=== PATIENT | female | born 1960 ===

== ENCOUNTER → 2016-08-25 | Day surgery (SDC) | payer BC ==
[~2016-08-25] MED LIST: ISOSULFAN BLUE 50 MG/5 ML VIAL SQ ONE; KETOROLAC TROMETHAMINE 30 MG/ML (IVP) VIAL IV PUSH ONE; LACTATED RINGER'S 1000 ML INJ 1,000 ML ONE; LIDOCAINE 1%/EPINEPHrine 1:100,000 SOLN 20 ML VIAL ONE; MIDAZOLAM HCL 2 MG/2 ML VIAL ONE; ONDANSETRON HCL 4 MG/2 ML VIAL IV PUSH ONE; PROPOFOL 200 MG/20 ML AMP IV ONE; ceFAZolin 2 GM PREMIX 50 ML ONE
--- NOTE | 2016-08-25 13:28 | TN ---
cc: LITO COREAS M.D. DATE OF SURGERY: 08/26/2016. 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 POSTOPERATIVE DIAGNOSIS: History of poorly differentiated infiltrating ductal carcinoma right breast. OPERATIVE PROCEDURE PERFORMED: 1. Injection of blue dye right breast. 2. Right axillary sentinel lymph node biopsy. 3. Right breast needle-localized lumpectomy. SURGEON: Lito Coreas M.D. NIGHT BAKER: LETICIA Gillis. ANESTHESIA: General. INDICATIONS FOR THE PROCEDURE: This is a pleasant 56-year-old woman who was initially diagnosed with a poorly differentiated invasive ductal carcinoma of the right breast. She elected to undergo neoadjuvant chemotherapy and has had response on imaging. She presents for breast conservation therapy. INTRAOPERATIVE FINDINGS: 1. Right axillary sentinel lymph node x2 sent to pathology. #1 was blue with 10-second count of 1046. #2 was not blue and had a 10-second count of 9320 and had a suture placed on it. 2. The right breast lumpectomy specimen had a short stitch at the superior anterior and a long stitch lateral posterior. The area of concern was contained on imaging per Dr. Boateng. DESCRIPTION OF THE PROCEDURE IN DETAIL: The surgical procedure was assisted by my nurse practitioner. My MICRO PHOTOGRAPHER's presence was necessary throughout the case for adequate visualization of the sentinel lymph node x2 and the hidden scar lumpectomy. My MICRO PHOTOGRAPHER was assisting me directly throughout the duration of the procedure. The skill set of the nurse practitioner was medically necessary to complete the procedure. During the surgical case, a registered nurse surgical services was working at the back table and providing the nurse practitioner and myself with appropriate instrumentation and the nurse practitioner was directly assisting me. DESCRIPTION OF THE PROCEDURE IN DETAIL: The patient was identified as Thea Escobedo following needle localization and lymphoscintigraphy was appropriately marked by the radiologist and taken to the operating room and placed in a supine position. Sequential compression devices were placed on bilateral lower extremities. Following induction of adequate general anesthesia, the time-out procedure was performed. Following completion of the time-out procedure to everyone's satisfaction within the room, an alcohol swab was used on the breast skin and 5 mL of isosulfan blue dye was injected in the peritumoral and subareolar positions. The right breast and axilla were then prepped and draped in the usual sterile fashion with Betadine. The Neoprobe was used to identify increased uptake in the right axilla and a proposed axillary incision was made with a marking pen. Local anesthetic was placed within the location of the proposed incision and the incision was carried out with a scalpel. Hemostasis was controlled with electrocautery. Dissection posteriorly through the subcutaneous fatty tissue until the axillary fat was encountered. Using the lighted retractors and the Neoprobe, sentinel lymph nodes were identified. Lymphovascular structures were controlled with hemoclips and the sentinel lymph nodes were removed. 10-second counts were performed and they were passed off the field for pathologic evaluation after marking sentinel lymph node #2 with a suture. With visual survey, palpation and use of the Neoprobe, no additional abnormal tissue within the axilla was identified. The wound was irrigated copiously with saline. Small bleeding points were controlled with electrocautery. Once the wound was sure to be dry, it was closed in two layers using 3-0 Vicryl and 4-0 Monocryl. Attention was then turned to hidden scar lumpectomy. A proposed incision along the superior medial edge of the areolar was made with a marking pen and infiltrated with local anesthetic. The incision was carried out with a scalpel and hemostasis was controlled with electrocautery. Dissection continued superiorly and medially until the localization needle was identified within the breast tissue. It was divided to the level of skin and brought into the breast and a generous portion of tissue around localization needle was from the surrounding breast tissue using electrocautery. The specimen was marked and sent for imaging with the above-mentioned results. The wound was copiously irrigated with saline. Two small bleeding points were controlled with cautery. Once the wound was sure to be dry, remaining local anesthetic was placed in the lumpectomy cavity and it was closed in two layers with 3-0 Vicryl and 4-0 Monocryl. Due to the patient's adhesive allergies, Dermabond was placed over the incisions and very gentle Tegaderm with Telfa was placed. The patient tolerated the procedures without apparent complication. Sponge, needle and instrument counts were correct at the end of the case. MD PENELOPE Copeland/AMY /1:08 PM /1:17 PM FLASH
== END | disposition home or self-care (01) ==
LOC: ESDC 06:41
PROVIDERS: ATTEND Surgery Trauma Surgery
DX: C50.911 Malignant neoplasm of unspecified site of right female breast (principal)
CPT/HCPCS: 00400; 01610; 19125; 38525; 38792; 88307; J0690; J1885; J2250; J2405; J3010; J7120; Q9968